=== PATIENT | female | born 1955 | race Caucasian/White ===

== ENCOUNTER 2025-10-08 14:43 | Inpatient (IN) | payer MEDICARE, OTHER ==
[2025-10-08] VITALS (14 sets, daily range): BP systolic 69–125; BP diastolic 45–87; TEMP 98; O2SAT 94–100
[~2025-10-08] VITALS: Ht 165.1 cm; Wt 72.6 kg
[2025-10-08] MEDS: IV NS 0.9% 1,000 ML BAG IV ONE ×2 (15:29→16:49)
[2025-10-08 15:41] LABS: PLATELET COUNT (AUTO) 216 K/uL (150-450); RED BLOOD CELL COUNT(AUTO) 4.76 MIL/uL (4.0-5.2); RED CELL DISTRIBUTION WIDTH 14.3 % (11.5-15.0); WHITE BLOOD COUNT (AUTO) 9.9 K/uL (4.3-11.0)
[2025-10-08 15:54] LABS: INR 0.96 (0.91-1.10)
[2025-10-08 16:00] LABS: LACTIC ACID 2.3 mmol/L (0.4-2.0)
[2025-10-08 16:05] LABS: ASPARTATE AMINOTRANSFERASE 13 U/L (15-37); CALCIUM, SERUM 9.0 mg/dL (8.5-10.1); CREATININE 3.5 mg/dL (0.6-1.3); SODIUM SERUM 128 mmol/L (136-145); TOTAL PROTEIN, SERUM 5.9 g/dL (6.4-8.2); UREA NITROGEN, BLOOD 41 mg/dL (7-18)
[2025-10-08] MEDS ORDERED: NOREPINEPHRINE 8 MG in IV NS 0.9% 242 ML IV PRN (16:30)
[2025-10-08 16:51] LABS: ABG BASE EXCESS -2.6 mmol/L (-2.0-3.0); ABG OXYGEN SATURATION 97.5 % (94.0-98.0); ABG PCO2 20.5 mmHg (32.0-45.0); ABG PH 7.548 (7.350-7.450); ABG PO2 102.8 mmHg (83.0-108.0); ABG TOTAL HEMOGLOBIN 13.9 G/dL (12.0-16.0); FLOW, BLOOD GAS 2.00 L/min (0.00-30.00); SITE, ABG RIGHT RADIAL
[2025-10-08] MEDS: INSULIN REGULAR, HUMAN 100 UNIT/ML 10 ML VIAL SQ ONE (17:02)
[2025-10-08] MEDS: PIPERACILLIN /TAZOBACTAM 3.375 G in IV D5W 50 ML IV ONE (17:08)
[2025-10-08] MEDS ORDERED: Z GUARD REMEDY 4 OZ OINT TP PRN (18:00)
[2025-10-08] MEDS ORDERED: ONDANSETRON HCL/PF 4 MG/2 ML VIAL IVP PRN (18:00)
[2025-10-08] MEDS ORDERED: DOSING PER PHARMACY-ZOSYN IV 1 EA EA XX PRN (18:30)
[2025-10-08] MEDS ORDERED: DEXTROSE 50%-WATER 50 ML DISP.SYRIN IV PRN (18:30)
[2025-10-08] MEDS ORDERED: HYDR25TA4 PO (18:52)
[2025-10-08] MEDS ORDERED: CETI10TA14 PO (18:52)
[2025-10-08] MEDS ORDERED: ERGO500093 PO (18:52)
[2025-10-08] MEDS ORDERED: FAMO40TA7 PO (18:52)
[2025-10-08] MEDS ORDERED: CLOP75TA15 PO (18:52)
[2025-10-08] MEDS ORDERED: PREG150C93 PO (18:52)
[2025-10-08] MEDS ORDERED: METF-442 PO (18:52)
[2025-10-08] MEDS ORDERED: VALS160T29 PO (18:52)
[2025-10-08] MEDS ORDERED: GLIP5TAB13 PO (18:52)
[2025-10-08] MEDS ORDERED: TRAZ-257 PO (18:52)
[2025-10-08] MEDS ORDERED: ATOR40TA PO (18:52)
[2025-10-08] MEDS ORDERED: CARV25TA2 PO (18:52)
[2025-10-08] MEDS: IV NS 0.9% 1,000 ML IV SCH (19:54)
[2025-10-08] MEDS: INSULIN GLARGINE, 100 UNIT/ML CARTRIDGE SQ SCH (19:58)
[2025-10-08] MEDS: NOREPINEPHRINE 8 MG in IV NS 0.9% 242 ML IV PRN (21:08)
[2025-10-08] MEDS: BLOOD SUGAR DIAGNOSTIC 1 EACH STRIP VI SCH (21:21)
[2025-10-08] MEDS: INSULIN REGULAR, HUMAN 100 UNIT/ML 3 ML VIAL SQ PRN (21:21)
[2025-10-08] MEDS: ZOSYN IVPB 3.375 G in IV D5W 50ml IV SCH (23:40)
[2025-10-09] VITALS (91 sets, daily range): BP systolic 69–157; BP diastolic 49–128; TEMP 97–98.3; O2SAT 86–99
[2025-10-09] MEDS: ACETAMINOPHEN 325 MG TABLET PO PRN (00:30)
[2025-10-09 04:38] LABS: PLATELET COUNT (AUTO) 286 K/uL (150-450); RED BLOOD CELL COUNT(AUTO) 4.53 MIL/uL (4.0-5.2); RED CELL DISTRIBUTION WIDTH 14.6 % (11.5-15.0); WHITE BLOOD COUNT (AUTO) 14.7 K/uL (4.3-11.0)
[2025-10-09 05:02] LABS: CALCIUM, SERUM 8.0 mg/dL (8.5-10.1); CREATININE 2.0 mg/dL (0.6-1.3); PHOSPHORUS 3.0 mg/dL (2.5-4.9); SODIUM SERUM 145.0 mmol/L (136-145); UREA NITROGEN, BLOOD 34.0 mg/dL (7-18)
[2025-10-09] MEDS: POTASSIUM CHLORIDE 20 MEQ TAB.PRT.SR PO ONE (10:17)
[2025-10-09 14:56] LABS: APPEARANCE,URINE CLEAR (CLEAR); BLOOD, URINE NEGATIVE Ery/uL (NEGATIVE); LEUKOCYTE ESTERASE ,URINE 1+ (NEGATIVE); NITRITE, URINE POSITIVE (NEGATIVE); UGLUCOSE 2+ mg/dL (NEGATIVE)
[2025-10-09 15:10] LABS: CREATININE, URINE 64.7 MG/DL (30.0-125.0); URINE SODIUM, RANDOM 113.0 mmol/l (40-220); URINE TOTAL PROTEIN 29.1 mg/dL (0-11.9)
[2025-10-09 15:50] LABS: ADD URINE CULTURE YES
[2025-10-09 15:51] LABS: SQUAMOUS EPITHELIAL CELL,UR Moderate /HPF (None Seen)
[2025-10-09 16:40] LABS: EOSINOPHIL,URINE None Seen
[2025-10-09] MEDS: HYDROCODONE/APAP 10/325MG TABLET PO PRN (22:39)
[2025-10-10] VITALS (93 sets, daily range): BP systolic 65–153; BP diastolic 13–111; TEMP 97.8–98.3; O2SAT 89–99
[2025-10-10] MEDS: MAG HYDROX/AL HYDROX/SIMETH 30 ML UDC PO PRN (04:18)
[2025-10-10 04:19] LABS: PLATELET COUNT (AUTO) 224 K/uL (150-450); RED BLOOD CELL COUNT(AUTO) 4.23 MIL/uL (4.0-5.2); RED CELL DISTRIBUTION WIDTH 14.2 % (11.5-15.0); WHITE BLOOD COUNT (AUTO) 10.1 K/uL (4.3-11.0)
[2025-10-10 04:38] LABS: ASPARTATE AMINOTRANSFERASE 8 U/L (15-37); CALCIUM, SERUM 7.7 mg/dL (8.5-10.1); CREATININE 1.1 mg/dL (0.6-1.3); PHOSPHORUS 1.6 mg/dL (2.5-4.9); SODIUM SERUM 144 mmol/L (136-145); TOTAL PROTEIN, SERUM 4.9 g/dL (6.4-8.2); UREA NITROGEN, BLOOD 20 mg/dL (7-18)
[2025-10-10 04:39] LABS: CREATINE KINASE, TOTAL 32 U/L (26-192)
[2025-10-10] MEDS: MORPHINE SULFATE INJ 4 MG/ML DISP.SYRIN IV PRN (05:03)
[2025-10-10] MEDS: PIPERACILLIN /TAZOBACTAM 3.375 G in IV D5W 100 ML IV SCH (14:02)
[2025-10-10] MEDS: K PHOS NEUTRAL 250 MG TABLET PO ONE (16:31)
[2025-10-10] MEDS: *INSULIN REGULAR(HUMULIN R)HUM 100 UNIT/ML VIAL SQ PRN (22:01)
[2025-10-10] MEDS: MAGNESIUM HYDROXIDE 30 ML UDC PO PRN (22:09)
[2025-10-11] VITALS (32 sets, daily range): BP systolic 87–136; BP diastolic 54–99; TEMP 97.7–98.6; O2SAT 91–100
[2025-10-11 04:18] LABS: PLATELET COUNT (AUTO) 150 K/uL (150-450); RED BLOOD CELL COUNT(AUTO) 3.79 MIL/uL (4.0-5.2); RED CELL DISTRIBUTION WIDTH 14.5 % (11.5-15.0); WHITE BLOOD COUNT (AUTO) 7.2 K/uL (4.3-11.0)
[2025-10-11 04:27] LABS: CALCIUM, SERUM 7.1 mg/dL (8.5-10.1); CREATININE 0.6 mg/dL (0.6-1.3); SODIUM SERUM 149.0 mmol/L (136-145); UREA NITROGEN, BLOOD 12.0 mg/dL (7-18)
[2025-10-11] MEDS: IV 1/2NS 1000 ML 1,000 ML IV PRN (09:00)
[2025-10-11] MEDS: POTASSIUM PHOSPHATE MM 7.5 MMOL in IV NS 0.9% 100 ML IV SCH (09:01)
[2025-10-12] VITALS: BP 120/79; TEMP 98.1; O2SAT 98
[2025-10-12 01:11] LABS: PTH, INTACT 138 pg/mL (15-65)
[2025-10-12 04:00] VITALS: BP 128/84; TEMP 98.6; O2SAT 99
[2025-10-12 08:00] VITALS: BP 133/100; TEMP 97.5; O2SAT 95
[2025-10-12] MEDS: CALCIUM CARBONATE (1250) 500 MG TABLET PO SCH (11:40)
[2025-10-12 12:00] VITALS: BP 124/73; TEMP 97.1; O2SAT 99
[2025-10-12 16:00] VITALS: BP 126/80; TEMP 97.5; O2SAT 100
[2025-10-12 20:00] VITALS: BP 126/87; TEMP 97.5; O2SAT 97
[2025-10-13] VITALS: BP 154/74; TEMP 97.7; O2SAT 100
[2025-10-13 04:00] VITALS: BP 110/76; TEMP 98.1; O2SAT 96
[2025-10-13 07:07] LABS: *SPE A/G RATIO 1.1 (0.7-1.7); *SPE ALBUMIN 2.4 g/dL (2.9-4.4); *SPE ALPHA-1-GLOBULIN 0.2 g/dL (0.0-0.4); *SPE ALPHA-2-GLOBULIN 0.7 g/dL (0.4-1.0); *SPE BETA GLOBULIN 0.7 g/dL (0.7-1.3); *SPE GLOBULIN, TOTAL 2.1 g/dL (2.2-3.9); *SPE M-SPIKE Not Observed g/dL (Not Observed); *SPE PROTEIN TOTAL 4.5 g/dL (6.0-8.5); *SPEGAMMA GLOBULIN 0.6 g/dL (0.4-1.8)
[2025-10-13 08:00] VITALS: BP 120/68; TEMP 97.7; O2SAT 97
[2025-10-13 12:00] VITALS: BP 143/98; TEMP 97.5; O2SAT 97
[2025-10-13 16:00] VITALS: BP 123/82; TEMP 97.3; O2SAT 97
[2025-10-13 20:00] VITALS: BP 120/76; TEMP 97.9; O2SAT 100
[2025-10-14] VITALS: BP 107/59; TEMP 98.2; O2SAT 99
[2025-10-14 04:00] VITALS: BP 131/80; TEMP 98.2; O2SAT 98
[2025-10-14 08:00] VITALS: BP 128/83; TEMP 98.1; O2SAT 95
[2025-10-14] MEDS ORDERED: Insulin Glargine,Hum SQ (11:55)
[2025-10-14] MEDS ORDERED: CALC500T52 PO (11:55)
[2025-10-14] MEDS ORDERED: INSU100V7 SQ (11:56)
[2025-10-14 12:00] VITALS: BP 124/76; TEMP 97.5; O2SAT 94
== END 2025-10-14 15:18 | disposition home or self-care (01) | DRG 637 ==
LOC: ER 15:10 → ICU 18:05 → TELE1 10-11 16:04
PROVIDERS: ADMIT Internal Medicine; ATTEND Internal Medicine
PROC: 02HV33Z Insertion of Infusion Device into Superior Vena Cava, Percutaneous Approach (ICD-10-PCS; principal; 2025-10-08)
DX: E11.00 Type 2 diabetes mellitus with hyperosmolarity without nonketotic hyperglycemic-hyperosmolar coma (NKHHC) (principal); G93.41 Metabolic encephalopathy; N17.0 Acute kidney failure with tubular necrosis; R57.1 Hypovolemic shock; E44.0 Moderate protein-calorie malnutrition; E87.20 Acidosis, unspecified; E86.0 Dehydration; Z79.02 Long term (current) use of antithrombotics/antiplatelets; I12.9 Hypertensive chronic kidney disease with stage 1 through stage 4 chronic kidney disease, or unspecified chronic kidney disease; N18.9 Chronic kidney disease, unspecified; E11.40 Type 2 diabetes mellitus with diabetic neuropathy, unspecified; Z90.12 Acquired absence of left breast and nipple; Z85.3 Personal history of malignant neoplasm of breast; G89.29 Other chronic pain; Z87.828 Personal history of other (healed) physical injury and trauma; Z79.899 Other long term (current) drug therapy; Z79.4 Long term (current) use of insulin; E88.09 Other disorders of plasma-protein metabolism, not elsewhere classified; E11.22 Type 2 diabetes mellitus with diabetic chronic kidney disease; R60.9 Edema, unspecified; S90.32XA Contusion of left foot, initial encounter; S90.31XA Contusion of right foot, initial encounter; X58.XXXA Exposure to other specified factors, initial encounter; Y92.9 Unspecified place or not applicable; E86.1 Hypovolemia; Z79.84 Long term (current) use of oral hypoglycemic drugs; X50.1XXA Overexertion from prolonged static or awkward postures, initial encounter; S99.911A Unspecified injury of right ankle, initial encounter
CPT/HCPCS: 36415; 36600; 71045-TC; 73610-TC; 76770-TC; 80048-TC; 80053-TC; 80076-TC; 81001; 82010-TC; 82550-TC; 82570-TC; 82803-TC; 82962-TC; 83605-TC; 83735-TC; 83970; 84100-TC; 84155; 84165; 84300-TC; 84443-TC; 84484-TC; 85025-TC; 85730-TC; 86850-TC; 87040-TC; 87081-TC; 87086-TC; 93971-TC; 94799-TC; 97116-TC; 97530-TC; 97535-TC; A4223; G0378; J1815; J2270; J2543; J3490; J7030; J7050; J7060